=== PATIENT | male | born 2005 | race Caucasian/White ===

== ENCOUNTER → 2024-08-02 13:53 | Outpatient (CLI) | payer OTHER, SELFPAY ==
--- NOTE | 2024-08-02 13:56 | DI.CT.S_ITS ---
PROCEDURE: CT FOOT LEFT WITHOUT CON INDICATIONS: s/p trauma to dorsum lt foot TECHNIQUE: Noncontrast 1-1.5 mm axial sections acquired from above the tibiotalar joint to the bottom of the calcaneus, with coronal and sagittal reformats. COMPARISON: None. FINDINGS: Image quality: Excellent. Bones: The following acute-subacute fractures are identified: * Avulsion fracture at the plantar-medial base of the 1st metatarsal (100) * Comminuted avulsion fractures at the Lisfranc interval originating from the bases of the 1st/2nd metatarsals as well as the medial/intermediate cuneiform is (-) * Avulsion fracture at along the proximal plantar aspect of the lateral cuneiform () * Avulsion fracture at the dorsal-lateral aspect of the intermediate cuneiform (163) There is an os intermetatarseum between the medial and intermediate cuneiform at the dorsum (). Joints: There is no significant widening of the Lisfranc interval at this time. The other joint spaces are preserved. Muscles: Overall muscle bulk is preserved. Tendons: The visualized flexor and extensor tendon contours are preserved. The Achilles tendon contour is preserved. Vessels: No aneurysmal dilatation of the visualized arterial vasculature. Other soft tissues: Soft tissue edema overlying the dorsum of the midfoot IMPRESSION: Multiple acute-subacute midfoot fractures in keeping with a Lisfranc fracture injury without significant divergence. Dictated by: Marques Atkins M.D. on 08/02/2024 at 16:56 Approved by: Marques Atkins M.D. on 08/02/2024 at 17:05
== END ==
PROVIDERS: Referring Provider Family Medicine; Visit Provider Family Medicine
DX: S92.312A Displaced fracture of first metatarsal bone, left foot, initial encounter for closed fracture (principal); S92.322A Displaced fracture of second metatarsal bone, left foot, initial encounter for closed fracture; S92.242A Displaced fracture of medial cuneiform of left foot, initial encounter for closed fracture; S92.232A Displaced fracture of intermediate cuneiform of left foot, initial encounter for closed fracture; S92.222A Displaced fracture of lateral cuneiform of left foot, initial encounter for closed fracture; M79.672 Pain in left foot
CPT/HCPCS: 73700

== ENCOUNTER → 2024-08-25 06:46 | Outpatient (CLI) | payer OTHER, SELFPAY ==
--- NOTE | 2024-08-25 07:21 | DI.CT.S_ITS ---
PROCEDURE: CT FOOT LEFT WITHOUT CON INDICATIONS: Fracture of tarsal bone TECHNIQUE: Noncontrast 1-1.5 mm axial sections acquired from above the tibiotalar joint to the bottom of the calcaneus, with coronal and sagittal reformats. For radiation dose reduction, the following was used: automated exposure control, adjustment of mA and/or kV according to patient size. COMPARISON: [facility], CT, CT FOOT LEFT WITHOUT CON, 08/02/2024, 14:01. FINDINGS: Image quality: Excellent. Bones: Interval postsurgical changes from fixation of the 1st and 2nd tarsometatarsal joints with a dorsal plate and screw construct. The more medial proximal screw is partially located within the articulation between the 1st and 2nd cuneiforms. Additional tight rope fixation devices seen between the 2nd metatarsal base and 1st cuneiform. Small fracture fragments again seen near the surgical site, partially obscured by streak artifact. No new osseous fracture is seen. Soft tissues: Mild subcutaneous edema at the dorsal medial midfoot. The articular cartilages, ligaments, tendons are not well evaluated with CT. Visualized musculature is normal in bulk. IMPRESSION: Interval postsurgical changes from fixation of the 1st and 2nd tarsometatarsal joints. No acute hardware complication is seen. Small residual fracture fragments are present with mild healing changes. No new osseous abnormality. Approved by: Omar Erwin M.D. on 08/25/2024 at 11:11
== END ==
DX: S92.202A Fracture of unspecified tarsal bone(s) of left foot, initial encounter for closed fracture (principal); X58.XXXA Exposure to other specified factors, initial encounter
CPT/HCPCS: 73700